=== PATIENT | male | born 1985 | race Caucasian/White ===

== ENCOUNTER 2022-11-17 02:18 | Emergency (ER) | payer OTHER ==
[2022-11-17 02:31] VITALS: BP 143/96; PULSE 73; RESP 18; TEMP 97.6; BMI 38.8
[2022-11-17] MEDS ORDERED: PSEUDOEPHEDRINE HCL 30 MG TABLET PO ONE (02:54)
[2022-11-17] MEDS ORDERED: OXYMETAZOLINE 0.05% NASAL SOLUTION 15 ML BOTTLE NS ONE (02:56)
== END 2022-11-17 03:25 | disposition home or self-care (01) ==
LOC: JER 02:18
DX: R06.02 Shortness of breath (principal); R09.81 Nasal congestion
CPT/HCPCS: 99283-25